=== PATIENT | male | born 1930 | race Hispanic/Latino ===

== ENCOUNTER 2016-12-17 10:35 | Day surgery (SDC) | payer MEDICARE ==
[2016-12-17] MEDS ORDERED: Midazolam 2 MG/2 ML VIAL ONE (12:21)
[2016-12-17] MEDS ORDERED: Flumazenil 0.1 mg/ml Inj (5ml) IVP ONE (12:21)
[2016-12-17] MEDS ORDERED: Naloxone 0.4 mg/ml Inj (Adult) ONE (12:21)
[2016-12-17] MEDS ORDERED: Midazolam 2 MG/2 ML VIAL IV ONE ×2 (12:28→12:32)
[2016-12-17] MEDS ORDERED: Sodium Chloride 0.9% 1,000 ML IV SCH (13:15)
--- NOTE | 2016-12-17 14:20 | HP ---
REASON FOR ADMISSION: IVA to assess severity of aortic stenosis. 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 Came with noninvasiv e workup. The patient underwent recently noninvasive workup because of shortness of breath. Denies any chest pain, but complained of shortness of breath. 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 SOCIAL HISTORY: Denies smoking. Denies any history of alcohol abuse. CURRENT CARDIAC WORKUP: Echo patient underwent 09/22/2016 that shows ejection fraction 55%-60%, possi ble moderate to severe aortic stenosis, not well visualized, consider IVA. The patient underwent ___ __ thallium dated 09/22/2016 that shows negative for ischemia, ejection fraction 85%. SOCIAL HISTORY: Denies smoking. Denies any history of alcohol abuse. CURRENT MEDICATIONS: The patient is taking Prograf, tacrolimus 1 mg daily, aspirin 81 mg, allopurino l 100 mg, multivitamin 1 tablet daily, losartan 100 mg daily, vitamin D 50,000 units, Coreg 6.25 twic e a day, omeprazole 20 mg daily, CellCept 250 p.o. daily. ALLERGIES: No known drug allergies. REVIEW OF SYSTEMS: As per HPI. PHYSICAL EXAMINATION: VITAL SIGNS: Height of the patient is 5 feet 5 inches, weight of the patient 174 pounds, body mass i ndex 29 kg/meter squared. Blood pressure 130/80, heart rate 76. HEENT: PERRLA. Extraocular muscles intact. NECK: Supple. No carotid bruits. No thyromegaly. CHEST: Clear to auscultation. HEART: S1, S2 regular. ABDOMEN: Soft. EXTREMITIES: Clubbing, cyanosis negative. BLOOD WORKUP: Not done, pending. IMPRESSION: Status post liver transplant 11/23/1999, hypertension, negative stress test for ischemia, ejection fraction 80% on 09/22/2016, echo shows moderate to severe aortic stenosis, not well visualiz ed, transesophageal echocardiogram suggested to assess the severity of aortic stenosis for possible t ranscatheter aortic valve replacement evaluation, history of liver transplant, hypertension, hyperlip idemia. Further recommendation after the transesophageal echocardiogram. We will follow with you. Thank you, , for providing us the opportunity in taking care of the patient. Tiana Maldonado MD cc: [id number] TT: 12/17/2016 13:15:12 en
[2016-12-17 14:38] VITALS: BP 137/63; PULSE 77; RESP 20; TEMP 97.6; O2SAT 98
--- NOTE | 2016-12-17 15:44 | CARD ---
APPROVED REPORT EXAM: Transesophageal echocardiogram with color flow Doppler. INDICATION AORTIC STENOSIS 2D DIMENSIONS LVOT Diameter1.8 (1.8-2.4cm) M-Mode DIMENSIONS Aortic Cusp Exc.1.10 (1.5-2.0cm) Aortic Valve AoV Peak Odvhrccp656.0cm/sAoV VTI35.4cmAO Peak GR.23mmHg LVOT Peak Avtmggja562.0cm/sLVOT VTI21.00cmAO Mean GR.10mmHg DIONE (VMAX)1.59oz1HYZ (VTI)1.51cm2 Mitral Valve E/A ratio0.0 TDI E/Lateral E'0.0E/Medial E'0.0 Tricuspid Valve TR Peak [id number]/sRAP [id number] Peak Gr.33mmHg [id number] Reason For Test : To assess severity of PROCEDURE After obtaining informed consent, patient underwent transesophageal echo in the Echo Lab. Type of Sedation : Conscious Sedation Sedation was administered by Dr. Maldonado. Sedation was achieved with Versed and , Fentanyl 1.5 mg and 50 mcg intravenously. Transesophageal probe was inserted and advanced into esophagus without difficulty. Echo enhancement indication: R/O Septal defect. Echo enhancement agent administered: Agitated Saline The IVA was performed without complications. Throughout the procedure, the blood pressure, pulse oximetry, cardiac rhythm, and rate were monitored. The patient tolerated the procedure without adverse effects. Recovery from conscious sedation was uneventful and vital signs were stable. LEFT VENTRICLE The left ventricle is normal size. There is mild to moderate concentric left ventricular hypertrophy. The left ventricular function is normal.EF-65% There is normal LV segmental wall motion. No left ventricle thrombus noted on this study. There is no ventricular septal defect visualized. There is no left ventricular aneurysm. There is no mass noted in the left ventricle. RIGHT VENTRICLE The right ventricle is mildly dilated. There is normal right ventricular wall thickness. Systolic function is mildly reduced. ATRIA The left atrium is mildly dilated. The right atrium is mildly dilated. The interatrial septum is intact with no evidence for an atrial septal defect. AORTIC VALVE The aortic valve is moderately to severely calcified. There is moderate aortic regurgitation. There is mild to moderate valvular aortic stenosis. DIONE 1.5 cm2, peak gradient 23 mmof Hg. There is no aortic valvular vegetation. MITRAL VALVE Mitral annular calcification is mild to moderate. The mitral valve leaflets are thickened. Calcified partially torn chordae noted There is no evidence of mitral valve prolapse. There is no mitral valve stenosis. Mitral regurgitation is mild to moderate. TRICUSPID VALVE The tricuspid valve leaflets display thickening. There is mild to moderate tricuspid regurgitation.RVSP-43 mmof Hg. There is no tricuspid valve prolapse or vegetation. There is no tricuspid valve stenosis. PULMONIC VALVE The pulmonic valve is borderline thickened. There is trace to mild pulmonic valvular regurgitation. There is no pulmonic valvular stenosis. GREAT VESSELS The aortic root is normal in size. The ascending aorta is normal in size. The pulmonary artery is normal. The IVC is normal in size and collapses >50% with inspiration. PERICARDIAL EFFUSION There is a trace pericardial effusion. There is no pleural effusion. <Conclusion> The left ventricle is normal size. There is mild to moderate concentric left ventricular hypertrophy. The left ventricular function is normal.EF-65% The aortic valve is moderately to severely calcified. There is moderate aortic regurgitation. There is mild to moderate valvular aortic stenosis. DIONE 1.5 cm2, peak gradient 23 mmof Hg. Calcified partially torn chordae noted Mitral regurgitation is mild to moderate. There is mild to moderate tricuspid regurgitation.RVSP-43 mmof Hg. There is a trace pericardial effusion.
== END 2016-12-17 16:15 | disposition home or self-care (01) ==
LOC: TEE 10:35
PROVIDERS: ATTEND Internal Medicine Cardiovascular Disease
DX: I08.3 Combined rheumatic disorders of mitral, aortic and tricuspid valves (principal); Z94.4 Liver transplant status; I10 Essential (primary) hypertension; M10.9 Gout, unspecified; E78.5 Hyperlipidemia, unspecified; R06.02 Shortness of breath; Z79.82 Long term (current) use of aspirin